=== PATIENT | female | born 1960 | race Caucasian/White ===

== ENCOUNTER 2016-06-29 13:39 | Emergency (ER) | payer MEDICAID ==
--- NOTE | 2016-06-29 13:56 | CPEKG ---
Heart Rate: 67 RR Interval: 896 P-R Interval: 156 QRSD Interval: 90 QT Interval: 460 QTC Interval: 486 P [place]: 45 QRS [place] [facility]: 73 T Wave [place] [facility]: 34 EKG Severity - BORDERLINE ECG - EKG Impression: SINUS RHYTHM EKG Impression: BORDERLINE PROLONGED QT INTERVAL Electronically Signed By: Tali Ernst 29-Jun-2016 14:07:04
[2016-06-29] MEDS ORDERED: ASPIRIN 81 MG CHEWABLE TAB PO ONE (13:59)
[2016-06-29 14:07] LABS: % IMMATURE GRANULYOCYTES 0.2 % (0.0-1.1); ABSOLUTE IMMATURE GRANULOCYTES 0.01 10^3/uL (0.00-0.10); ADD DIFF? NO; ADD MORPH? NO; ADD SCAN? NO; ATYPICAL LYMPHOCYTE FLAG 10 (0-99); FRAGMENT RBC FLAG 0 (0-99); HEMOGLOBIN 15.5 g/dL (12.6-16.3); LEFT SHIFT FLG 0 (0-99); LIPEMIA HEMOLYSIS FLAG 90 (0-99); MEAN CELL HEMOGLOBIN 29.9 pg (27.9-34.1); MEAN CELL HEMOGLOBIN CONCENTR. 34.4 g/dL (32.4-36.7); MEAN CELL VOLUME 86.9 fL (81.5-99.8); MEAN PLATELET VOLUME 8.9 fL (8.7-11.7); PLATELET CLUMPS FLAG 20 (0-99); PLATELET COUNT 246 10^3/uL (150-400); RED BLOOD CELL COUNT 5.18 10^6/uL (4.18-5.33); RED CELL DISTRIBUTION WIDTH 12.7 % (11.5-15.2)
[2016-06-29 14:21] LABS: ANION GAP 13 mEq/L (8-16); CALCIUM 9.5 mg/dL (8.5-10.4); CARBON DIOXIDE 29 mEq/l (22-31); CHLORIDE 99 mEq/L (97-110); CREATININE 0.8 mg/dL (0.6-1.0); GLOMERULAR FILTRATION RATE > 60; GLUCOSE 90 mg/dL (70-100); POTASSIUM 3.7 mEq/L (3.5-5.2); SODIUM 141 mEq/L (134-144)
[2016-06-29 14:33] LABS: TROPONIN I < 0.012 ng/mL (0-0.034)
--- NOTE | 2016-06-29 14:52 | EDPHY ---
H & P Stated Complaint: chest pain, high blood pressure for 1 week Time Seen by Provider: 06/29/16 13:58 HPI/ROS: CHIEF COMPLAINT: Chest pain History by patient HISTORY OF PRESENT ILLNESS: 56 old woman with history of hypertension and hyperthyroidism presents complaining of 1 week of intermittent left-sided axillary and chest pain which he describes as a pressure-like feeling inside or maybe a sore muscle however it does not seem to be worse when she moves her arm around or moves her chest when. Pain is intermittent and occurs at rest and is not brought on by exertion. Some associated with any shortness of breath, nausea vomiting or diaphoresis. It is not pleuritic in nature. She has some chronic leg swelling which she says the left is greater than right and this is unchanged. Initially as I was interviewing the patient she was declining any current symptoms however she did develop it briefly and then it resolved. She decided to seek medical attention for today because she also noticed some right- sided chest pain as some left-sided neck pain when she felt the symptoms this morning. She often feels somewhat she 1st wakes up in the morning. Patient also notes that her blood pressure has been running high for the past week. She did do a work-out video yesterday which did not precipitate the symptoms She has been taking her medications as usual and has not had recent changes in her blood pressure medication dosages for the past 6 months. She does note that for the past week she has been mostly sitting around watching movies and eating junk food. This may have increase the salt in her diet she states. She also notes that they have been adjusting her dose of anti thyroid medication because she had become hypothyroid, so the recently decreased the anti thyroid medication dose. Cardiac risk factors: Patient is an ex smoker but continues to use the heating patches. She says her cholesterol is borderline. She has no family history of heart disease. She has no history of diabetes. REVIEW OF SYSTEMS: As in HPI, and all other systems reviewed and are negative Source: Patient - Medical/Surgical History Hx Diabetes: No Hx Cardiac Disease: No Other PMH: Graves Dz. HTN - Family History Significant Family History: No pertinent family hx - Social History Smoking Status: Former smoker Constitutional: Initial Vital Signs Temperature (C) 36.4 C 06/29/16 13:39 Heart Rate 78 06/29/16 13:39 Respiratory Rate 18 06/29/16 13:39 Blood Pressure 184/114 H 06/29/16 13:39 O2 Sat (%) 99 06/29/16 13:39 O2 Delivery Mode Room Air Allergies/Adverse Reactions: No Known Allergies Allergy (Unverified 06/29/16 13:47) Home Medications: Medication Instructions Recorded Nicotine Lozenge 12/28/15 Nicotine Patch 12/28/15 Valsartan 12/28/15 Methimazole 06/29/16 Medical Decision Making - Diagnostics Imaging Results: Imaging Impressions Chest X-Ray 06/29/16 13:59 Impression: Possible airways disease. ED Course/Re-evaluation: 56-year-old woman with a history of hypertension presents with elevated blood pressure and atypical chest pain and left axillary pain symptoms. ECG shows no evidence of ischemia. Patient is asymptomatic in the ED and there is no evidence of acute hypertensive emergency. Her increased salt intake may be contributing to the elevated blood pressure. Patient's symptoms have been ongoing for many days now and a troponin is negative essentially ruling out acute coronary syndrome. I think at this point is reasonable for her to follow up with her primary care physician as an outpatient for evaluation of her blood pressure as her diastolics are consistently running quite high. I am recommending she sees her PCP in 1-2 days for re-evaluation of her blood pressure and blood pressure medications. In addition they can discuss the need for further cardiac workup as an outpatient. I discussed this plan with the patient who understands and is agreeable to this plan. TSH is pending at time of dictation and this will also need follow-up as her thyroid may be contributing to the patient's blood pressure and other symptoms. - Data Points Laboratory Results: Laboratory Results 06/29/16 14:00 06/29/16 14:00 06/29/16 06/29/16 06/29/16 14:00 14:00 14:00 WBC 6.29 10^3/uL 10^3/uL (3.80-9.50) RBC 5.18 10^6/uL 10^6/uL (4.18-5.33) Hgb 15.5 g/dL g/dL (12.6-16.3) Hct 45.0 % % (38.0-47.0) MCV 86.9 fL fL (81.5-99.8) MCH 29.9 pg pg (27.9-34.1) MCHC 34.4 g/dL g/dL (32.4-36.7) RDW 12.7 % % (11.5-15.2) Plt Count 246 10^3/uL 10^3/uL (150-400) MPV 8.9 fL fL (8.7-11.7) Neut % (Auto) 70.1 % % (39.3-74.2) Lymph % (Auto) 22.6 % % (15.0-45.0) [place] % (Auto) 5.6 % % (4.5-13.0) Eos % (Auto) 1.0 % % (0.6-7.6) Baso % (Auto) 0.5 % % (0.3-1.7) Nucleat RBC Rel Count 0.0 % % (0.0-0.2) Absolute Neuts (auto) 4.42 10^3/uL 10^3/uL (1.70-6.50) Absolute Lymphs (auto) 1.42 10^3/uL 10^3/uL (1.00-3.00) Absolute Monos (auto) 0.35 10^3/uL 10^3/uL (0.30-0.80) Absolute Eos (auto) 0.06 10^3/uL 10^3/uL (0.03-0.40) Absolute Basos (auto) 0.03 10^3/uL 10^3/uL (0.02-0.10) Absolute Nucleated RBC 0.00 10^3/uL 10^3/uL (0-0.01) Immature Gran % 0.2 % % (0.0-1.1) Immature Gran # 0.01 10^3/uL 10^3/uL (0.00-0.10) Sodium 141 mEq/L mEq/L (134-144) Potassium 3.7 mEq/L mEq/L (3.5-5.2) Chloride 99 mEq/L mEq/L (97-110) Carbon Dioxide 29 mEq/l mEq/l (22-31) Anion Gap 13 mEq/L mEq/L (8-16) BUN 18 mg/dL mg/dL (7-23) Creatinine 0.8 mg/dL mg/dL (0.6-1.0) Estimated GFR > 60 Glucose 90 mg/dL mg/dL (70-100) Calcium 9.5 mg/dL mg/dL (8.5-10.4) Troponin I < 0.012 ng/mL ng/mL (0-0.034) TSH Pending Medications Given: Discontinued Medications Aspirin (Aspirin) 324 mg PO EDNOW ONE Stop: 06/29/16 14:00 Last Admin: 06/29/16 14:20 Dose: 324 mg Departure - Departure Disposition: Home, Routine, Self-Care Clinical Impression: Elevated blood pressure reading Chest pain, unspecified Qualifiers: Chest pain type: unspecified Qualified Code(s): R07.9 - Chest pain, unspecified Clinical Impression: (Ruled Out): Hypertension Condition: Fair Instructions: Chest Pain (ED), Hypertension (ED) Additional Instructions: You were seen by Dr. Tali Ernst today. Return for any worsening or new concerns. Please follow up here with your primary care physician in 1-2 days to have your blood pressure rechecked and to discuss better blood pressure control and need for any further cardiac testing. Referrals: NONE *PRIMARY CARE P,. [Primary Care Provider] - As per Instructions
[2016-06-29 15:11] VITALS: RESP 20
[2016-06-29 15:38] VITALS: BP 144/95; PULSE 65; TEMP 98.2; O2SAT 95
== END 2016-06-29 15:37 | disposition home or self-care (01) ==
LOC: CED 13:39
DX: R07.9 Chest pain, unspecified (principal); I10 Essential (primary) hypertension; Z87.891 Personal history of nicotine dependence
CPT/HCPCS: 71020-PO; 80048-PO; 84443-PO; 84484-PO; 85025-PO

== ENCOUNTER → 2016-10-24 | Outpatient (CLI) | payer MEDICAID | LOC: CIMAGING 09:52 | PROVIDERS: ATTEND Physician Assistant Medical | DX: Z12.31 Encounter for screening mammogram for malignant neoplasm of breast (principal) | CPT/HCPCS: G0202 ==

== ENCOUNTER → 2016-11-16 | Outpatient (CLI) | payer MEDICAID | LOC: CIMAGING 13:10 | PROVIDERS: ATTEND Physician Assistant Medical | DX: R92.8 Other abnormal and inconclusive findings on diagnostic imaging of breast (principal) | CPT/HCPCS: G0206 ==

== ENCOUNTER → 2017-12-19 | Outpatient (CLI) | payer MEDICAID | LOC: FIMAGING 09:20 | PROVIDERS: ATTEND Physician Assistant Medical | DX: Z12.31 Encounter for screening mammogram for malignant neoplasm of breast (principal) ==

== ENCOUNTER → 2017-12-22 | Outpatient (CLI) | payer MEDICAID | LOC: BRMIMAGING 08:29 | PROVIDERS: ATTEND Physician Assistant Medical | DX: Z13.820 Encounter for screening for osteoporosis (principal); M85.89 Other specified disorders of bone density and structure, multiple sites ==

== ENCOUNTER → 2018-05-01 | Outpatient (CLI) | payer MEDICAID | LOC: CIMAGING 15:30 | PROVIDERS: ATTEND Family Medicine | DX: R22.2 Localized swelling, mass and lump, trunk (principal) | CPT/HCPCS: 76882-PO ==

== ENCOUNTER → 2018-05-16 | Outpatient (CLI) | payer MEDICAID ==
[~2018-05-16] MED LIST: LIDOCAINE 1% 300 MG/30 ML SDV ONE
== END ==
LOC: FIMAGING 12:12
PROVIDERS: ATTEND Surgery
PROC: 0KB Muscles, Excision (ICD-10-PCS; principal; 2018-05-16)
DX: R22.31 Localized swelling, mass and lump, right upper limb (principal)